=== PATIENT | male | born 1980 | race Caucasian/White ===

== ENCOUNTER 2020-09-20 10:45 | Outpatient (RCR) | payer BC, SELFPAY ==
[2020-09-20 09:38] VITALS: BMI 39.1
[2020-09-20 09:40] VITALS: BMI 39.1
== END 2020-12-06 11:10 | disposition home or self-care (01) ==
LOC: ANHDMC 10:45
PROVIDERS: PCP Internal Medicine; Visit Provider Internal Medicine
DX: E11.9 Type 2 diabetes mellitus without complications (principal); Z71.89 Other specified counseling
CPT/HCPCS: G0108

== ENCOUNTER 2021-04-26 14:30 | Outpatient (RCR) | payer BC, SELFPAY | END 2021-06-26 14:17 | disposition home or self-care (01) | LOC: ANHDMC 14:30 | PROVIDERS: PCP Internal Medicine; Visit Provider Internal Medicine | DX: E11.9 Type 2 diabetes mellitus without complications (principal); Z71.89 Other specified counseling | CPT/HCPCS: 99199; G0109 ==

== ENCOUNTER 2021-08-02 07:58 | Outpatient (RCR) | payer BC, SELFPAY | END 2021-10-18 07:23 | disposition home or self-care (01) | LOC: ANHDMC 07:58 | PROVIDERS: PCP Internal Medicine; Visit Provider Internal Medicine | DX: E11.9 Type 2 diabetes mellitus without complications (principal) | CPT/HCPCS: 99199 ==

== ENCOUNTER 2024-06-09 16:30 | Emergency (ER) | payer SELFPAY ==
[2024-06-09 16:32] VITALS: BP 117/94; PULSE 128; RESP 20; TEMP 36.4; O2SAT 100
== END 2024-06-09 18:49 | disposition left against medical advice (07) ==
LOC: ANHED 18:45
PROVIDERS: PCP Internal Medicine
DX: R11.2 Nausea with vomiting, unspecified (principal); R06.02 Shortness of breath
CPT/HCPCS: 99199

== ENCOUNTER 2025-05-26 10:46 | Outpatient (CLI) | payer BC, SELFPAY ==
--- NOTE | ~2025-05-26 | US_ITS ---
EXAMINATION: US thyroid DATE: 05/26/2025 11:28 INDICATION: Nodule TECHNIQUE: Multiple ultrasound images of the thyroid were obtained. COMPARISON: None. FINDINGS: The right thyroid lobe measures 5.6 x 2.0 x 1.6 cm. Several complex nodules are noted in the right lobe of the largest, measuring 1.4 cm in the superior pole. A second nodule measuring 1.1 cm and a third nodule measuring 1.0 cm noted. All with TR 3 to TR 4 sonographic features. The left thyroid lobe measures 7.1 x 2.9 x 3.4 cm. Complex nodules are noted with the largest measuring 2.7 x 1.6 x 3.2 cm, and 1.9 x 2.3 x 3.2 cm nodule is noted. Both with TR 3 to TR 4 sonographic features. IMPRESSION: 1. Complex nodules in both lobes of thyroid. 2. Consider FNA tissue sampling of the largest nodules if not already performed. Reviewed, dictated and finalized at location A. PROFESSIONAL IMPRESSION: 1. Complex nodules in both lobes of thyroid. 2. Consider FNA tissue sampling of the largest nodules if not already performed .
== END 2025-05-26 10:47 | disposition home or self-care (01) ==
PROVIDERS: PCP Internal Medicine; Visit Provider Internal Medicine
DX: E04.2 Nontoxic multinodular goiter (principal)
CPT/HCPCS: 76536